=== PATIENT | female | born 1980 | race African-American/Black ===

== ENCOUNTER 2017-06-20 10:21 | Emergency (ER) | payer OTHER ==
[~2017-06-20] VITALS: Ht 170.2 cm; Wt 97.5 kg
[2017-06-20 10:37] VITALS: BP 155/70
[2017-06-20] MEDS ORDERED: OXYC-328 PO (10:46)
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
== END 2017-06-20 10:45 | disposition home or self-care (01) ==
LOC: ER 10:21
DX: R52 Pain, unspecified (principal); F43.10 Post-traumatic stress disorder, unspecified; I49.3 Ventricular premature depolarization
CPT/HCPCS: 99283

== ENCOUNTER 2017-09-04 08:50 | Emergency (ER) | payer OTHER ==
[~2017-09-04] VITALS: Ht 167.6 cm; Wt 97.5 kg
[~2017-09-04 08:50] MED LIST: APIX5TAB PO; ESCITALOPRAM OX10 MG PO; FERR-36 PO; HYDR-2766 PO; HYDR25TA PO; KETO15CR2 TP; NICO1PAT25 TD; OXYC-328 PO; PANT40TA3 PO; POTA20TA82 PO; TRIA15CR TP
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
[2017-09-04] MEDS ORDERED: oxyCODONE/APAP 5/325 1 TAB TABLET PO ONE (09:30)
[2017-09-04] MEDS ORDERED: LIDOCAINE 1%/EPI 1:100,000 20 ML VIAL. INJ ONE (09:30)
[2017-09-04] MEDS ORDERED: ONDANSETRON ODT 4 MG TAB.RAPDIS. PO ONE (09:30)
[2017-09-04] MEDS ORDERED: HYDR-971 PO (09:52)
[2017-09-04 09:56] VITALS: BP 153/73
== END 2017-09-04 09:57 | disposition home or self-care (01) ==
LOC: ER 08:50
DX: L02.213 Cutaneous abscess of chest wall (principal); F43.10 Post-traumatic stress disorder, unspecified
CPT/HCPCS: 10060; 87071; 87075; 87205; 99284; J3490; Q0162

== ENCOUNTER 2017-10-19 07:18 | Emergency (ER) | payer OTHER ==
[2017-10-19] MEDS: LIDOCAINE WITH 8.4% SOD BICARB 3 ML DISP.SYRIN. IJ (07:45)
[2017-10-19] MEDS: oxyCODONE/APAP 5/325 1 TAB TABLET PO (07:51)
== END 2017-10-19 08:31 | disposition home or self-care (01) ==
LOC: ER 07:18
DX: L02.211 Cutaneous abscess of abdominal wall (principal); F43.10 Post-traumatic stress disorder, unspecified; Z98.84 Bariatric surgery status
CPT/HCPCS: 10060; 99283-25

== ENCOUNTER 2018-05-20 13:55 | Emergency (ER) | payer OTHER ==
[2018-05-20] MEDS: HYDROcodone/APAP 5/325MG 1 TAB TABLET PO (15:33)
[2018-05-20] MEDS: LIDOCAINE WITH 8.4% SOD BICARB 3 ML DISP.SYRIN. INJ (15:34)
== END 2018-05-20 16:02 | disposition home or self-care (01) ==
LOC: ER 16:02
DX: N76.4 Abscess of vulva (principal)
CPT/HCPCS: 56405; 99284

== ENCOUNTER 2018-08-19 19:51 | Emergency (ER) | payer OTHER ==
[~2018-08-19] VITALS: Ht 167.6 cm; Wt 97.5 kg
[~2018-08-19 19:51] MED LIST changes: +DOXY100C14 PO; +HYDR-971 PO
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
[2018-08-19] MEDS ORDERED: diazePAM 5 MG TABLET PO ONE (20:15)
[2018-08-19] MEDS ORDERED: hydroCHLOROthiazide 12.5 MG CAPSULE PO ONE (20:15)
[2018-08-19] MEDS ORDERED: IV NORMAL SALINE 1000ML BAG 1,000 ML IV ONE (20:30)
[2018-08-19] MEDS ORDERED: METOPROLOL TARTRATE 5 MG/5 ML VIAL. IVP ONE (20:30)
[2018-08-19 21:37] LABS: BASO % 0 % (0-3); EOS % 0 % (0-3); HEMATOCRIT 35.8 % (36.0-47.0); HEMOGLOBIN 11.5 g/dL (12.0-15.5); LYMPH # 1.7 x10^3/uL (1.0-4.8); LYMPH % 14 % (24-48); MEAN CORPUSCULAR HEMOGLOBIN 24 pg (25-35); MEAN CORPUSCULAR HGB CONC 32 g/dL (31-37); MEAN CORPUSCULAR VOLUME 75 fL (79-100); MONO # 0.6 x10^3/uL (0.0-1.1); MONO % 5 % (0-9); NEUT # 9.7 x10^3uL (1.8-7.7); NEUT % 80 % (31-73); PLATELET COUNT 299 x10^3/uL (140-400); RED BLOOD COUNT 4.78 x10^6/uL (3.50-5.40); RED CELL DISTRIBUTION WIDTH 19.7 % (11.5-14.5); WHITE BLOOD COUNT 12.1 x10^3/uL (4.0-11.0)
[2018-08-19 21:42] LABS: BARBITURATES NEG (NEG); BENZODIAZEPINES NEG (NEG); CANNABINOIDS NEG (NEG); COCAINE NEG (NEG); METHADONE NEG (NEG); OPIATES NEG (NEG); PHENCYCLIDINE NEG (NEG)
[2018-08-19 21:44] LABS: AMPHETAMINE/METHAMPHETAMINE POS (NEG)
[2018-08-19 22:24] VITALS: BP 150/86
[2018-08-19 22:26] LABS: CALCIUM 8.9 mg/dL (8.5-10.1); CREATININE 0.9 mg/dL (0.6-1.0); GFR 84.3; MAGNESIUM 2.2 mg/dL (1.8-2.4); POTASSIUM 3.1 mmol/L (3.5-5.1)
[2018-08-19] MEDS ORDERED: POTA20TA82 PO (22:59)
[2018-08-19] MEDS ORDERED: HYDR12.58 PO (22:59)
[2018-08-19] MEDS ORDERED: POTASSIUM CHLORIDE 20 MEQ TABLET.ER. PO ONE (23:00)
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
--- NOTE | 2018-08-20 09:22 | EKG ---
[facility] [address] [place] [address] Test Date: 2018-08-19 Test Time: 20:55:12 Pat Name: ISABEL DAWN Department: Room: Gender: F Gift Officer: : 1980 Requested By: KASHMIR BATES Order Number: [id number] Reading MD: Vladimir Adame MD Measurements Intervals [place] Rate: 74 P: 48 SC: 176 QRS: -5 QRSD: 92 T: 24 QT: 404 QTc: 449 Interpretive Statements SINUS RHYTHM Electronically Signed On 08-22-2018 11:31:44 CDT by Vladimir Adame MD
== END 2018-08-19 23:33 | disposition home or self-care (01) ==
LOC: ER 19:51
DX: F41.9 Anxiety disorder, unspecified (principal); I10 Essential (primary) hypertension; E87.6 Hypokalemia; F43.10 Post-traumatic stress disorder, unspecified
CPT/HCPCS: 36415; 71045; 80048; 80307; 83735; 83880; 84484; 85025; 93005; 99285; G0480; J7030; G0479

== ENCOUNTER 2020-09-28 15:14 | Emergency (ER) | payer MEDICAID, OTHER ==
[~2020-09-28] VITALS: Ht 294.6 cm; Wt 112.0 kg
[~2020-09-28 15:14] MED LIST changes: -HYDR-2766 PO; +HYDR-2769 PO; +HYDR-3164 PO; -HYDR-971 PO; +HYDR12.58 PO; -OXYC-328 PO; +OXYC1TAB22 PO; -PANT40TA3 PO; +PANT40TA77 PO; +POTA20TA4 PO; -POTA20TA82 PO
[2020-09-28 16:00] VITALS: BP 132/95
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
== END 2020-09-28 16:44 | disposition home or self-care (01) ==
LOC: ER 15:14
DX: S40.852A Superficial foreign body of left upper arm, initial encounter (principal); F41.9 Anxiety disorder, unspecified; I10 Essential (primary) hypertension; F17.200 Nicotine dependence, unspecified, uncomplicated; Z98.890 Other specified postprocedural states; W45.8XXA Other foreign body or object entering through skin, initial encounter; Y93.89 Activity, other specified; Y92.89 Other specified places as the place of occurrence of the external cause; Y99.8 Other external cause status
CPT/HCPCS: 10120; 99285

== ENCOUNTER 2021-12-14 06:49 | Inpatient (IN) | payer MEDICAID ==
[2021-12-14] VITALS (8 sets, daily range): BP systolic 129–159; BP diastolic 76–123
[~2021-12-14] VITALS: Ht 167.6 cm; Wt 122.0 kg
[~2021-12-14 06:49] MED LIST changes: +DOXY-181 PO; -DOXY100C14 PO
[2021-12-14] MEDS ORDERED: IV NORMAL SALINE 1000ML BAG 1,000 ML IV ONE (07:00)
--- NOTE | 2021-12-14 07:14 | EKG ---
[facility] [address] [place] [address] Test Date: 2021-12-14 Test Time: 07:06:50 Pat Name: ISABEL DAWN Department: Room: Gender: F Pile Trimmer: : 1980 Requested By: RUBIA MCKENNA Order Number: [id number] Reading MD: Garrison Blair Measurements Intervals [place] Rate: 75 P: 169 [place]: 200 QRS: 12 QRSD: 92 T: 16 QT: 386 QTc: 434 Interpretive Statements SINUS RHYTHM LEFT ATRIAL ABNORMALITY Electronically Signed On 12-14-2021 13:45:56 MEDICAL RECORD [employer] TEACHER by Garrison Blair
[2021-12-14] MEDS ORDERED: CONTRAST GIVEN. MC PRN (07:15)
[2021-12-14] MEDS ORDERED: IOHEXOL 300 MG/ML 100ML VIAL. IV ONE (07:15)
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
[2021-12-14 07:35] LABS: BASO % 0 % (0-3); EOS # 0.1 x10^3/uL (0.0-0.7); EOS % 1 % (0-3); HEMATOCRIT 41.8 % (36.0-47.0); HEMOGLOBIN 12.9 g/dL (12.0-15.5); LYMPH # 2.1 x10^3/uL (1.0-4.8); LYMPH % 26 % (24-48); MEAN CORPUSCULAR HEMOGLOBIN 26 pg (25-35); MEAN CORPUSCULAR HGB CONC 31 g/dL (31-37); MEAN CORPUSCULAR VOLUME 84 fL (79-100); MONO # 0.4 x10^3/uL (0.0-1.1); MONO % 5 % (0-9); NEUT # 5.5 x10^3/uL (1.8-7.7); NEUT % 68 % (31-73); PLATELET COUNT 313 x10^3/uL (140-400); RED BLOOD COUNT 4.97 x10^6/uL (3.50-5.40); RED CELL DISTRIBUTION WIDTH 17.6 % (11.5-14.5); WHITE BLOOD COUNT 8.1 x10^3/uL (4.0-11.0)
[2021-12-14 07:45] LABS: CALCIUM 8.2 mg/dL (8.5-10.1); CREATININE 0.7 mg/dL (0.6-1.0); POTASSIUM 3.9 mmol/L (3.5-5.1)
[2021-12-14 07:55] LABS: PROTHROMBIN TIME PATIENT 11.6 SEC (11.7-14.0)
--- NOTE | 2021-12-14 07:55 | RAD ---
CT head without contrast: Reason for examination: Left-sided weakness with left facial droop. Helical images were obtained through the brain with no contrast administered. Reconstruction was perf ormed in sagittal and coronal planes. Exposure: One or more of the following individualized dose reduction techniques were utilized for thi s examination: 1. Automated exposure control 2. Adjustment of the mA and/or kV according to patient size 3. Use of iterative reconstruction technique. Ventricular systems are symmetric and not dilated. No midline shift is seen. There is no evidence of intracranial hemorrhage, infarct, mass or edema. No abnormalities of seen at the orbits. The paranasa l sinuses show small polypoid lesions bilaterally in the maxillary antra. Mastoid air cells are clear . No acute skull abnormality is seen. IMPRESSION: No acute intracranial abnormality evident. Small polypoid lesions in the maxillary antra bilaterally. FOR INTERNAL CODING PURPOSES Critical result: Findings discussed with RUBIA MCKENNA MD at 12/14/2021 7:51 AM. RESULT CODE: (C) Electronically signed by: Raquel Patterson MD (12/14/2021 7:53 AM) [id number]
[2021-12-14] MEDS ORDERED: ASPIRIN 325 MG TABLET PO ONE (08:45)
--- NOTE | 2021-12-14 08:55 | RAD ---
CT angiogram of the head and neck with contrast: Reason for examination: Left-sided weakness and left facial droop. Now improving. Helical images were obtained through the head and neck with intravenous administration of 75 cc Isovu e-370 using and angiographic protocol. 3-D MIPS reconstruction was performed in sagittal and coronal planes and volume rendered images were obtained. Exposure: One or more of the following individualized dose reduction techniques were utilized for thi s examination: 1. Automated exposure control 2. Adjustment of the mA and/or kV according to patient size 3. Use of iterative reconstruction technique. The intracranial carotid arteries are patent. There is normal bifurcation into the anterior middle ce rebral arteries no stenoses or occlusions are evident. Vertebral arteries bilaterally are patent with normal confluence into the basilar artery which is patent. There is normal blood flow into the super ior cerebellar and posterior cerebral arteries bilaterally no aneurysms or arteriovenous malformation s are identified. Dural sinuses and cerebral veins are patent. Diffuse renal veins are patent. The aortic arch shows normal origin of the right brachiocephalic gayle ry, left carotid artery and left subclavian artery with no stenoses or occlusions evident. Subclavian arteries bilaterally are patent. The vertebral arteries bilaterally arise from the respective subcla vian arteries and are patent to the basilar artery. The common carotid arteries bilaterally show no s tenosis or occlusions. The internal and external carotid artery show no stenosis or occlusions. No abnormalities of seen at the parotid or submandibular glands. No abnormality seen at the thyroid g land. The trachea and visualized portion of the esophagus show no abnormalities. Vocal cords are symm etric. Vallecula and piriform sinuses show no gross abnormalities. Muscular bundles are symmetric. A few nonspecific lymph nodes are seen in the neck. IMPRESSION: No acute vascular abnormalities evident in the head or neck. Electronically signed by: Raquel Patterson MD (12/14/2021 8:53 AM) [id number]
[2021-12-14 09:02] LABS: BILIRUBIN,URINE NEGATIVE (NEG); CLARITY,URINE CLOUDY; COLOR,URINE YELLOW; NITRITE,URINE NEGATIVE (NEG); PROTEIN,URINE NEGATIVE (NEG-TRACE)
[2021-12-14 09:06] LABS: U PREG PATIENT NEGATIVE (NEG)
[2021-12-14 09:16] LABS: BACTERIA,URINE FEW /HPF (0-FEW); RBC,URINE 0 /HPF (0-2)
[2021-12-14] MEDS ORDERED: hydroCHLOROthiazide 25 MG TABLET PO ONE (09:30)
[2021-12-14] MEDS ORDERED: hydrALAZINE 20 MG/ML VIAL. IVP PRN (10:00)
[2021-12-14] MEDS ORDERED: ASPIRIN RECTAL 300 MG SUPP. PR PRN (10:00)
[2021-12-14] MEDS ORDERED: ONDANSETRON PF 4 MG/2 ML VIAL. IVP PRN (10:00)
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
[2021-12-14 10:30] LABS: BARBITURATES NEG (NEG); BENZODIAZEPINES NEG (NEG); CANNABINOIDS NEG (NEG); COCAINE NEG (NEG); METHADONE NEG (NEG); OPIATES NEG (NEG); PHENCYCLIDINE NEG (NEG)
[2021-12-14 10:31] LABS: AMPHETAMINE/METHAMPHETAMINE NEG (NEG)
[2021-12-14 10:35] LABS: CHOLESTEROL/HDL RATIO 2.6
--- NOTE | 2021-12-14 11:00 | NUR ---
Patient received from ED via wheelchair; s/p possible TIA and left side weakness. NIH score of 2 on floor. Patient is hypertensive and reported a headache. MD notified. See chart for more. Will cont. to monitor
[2021-12-14] MEDS: FAMOTIDINE 20 MG TABLET. PO SCH ×2 (11:36→21:33)
[2021-12-14] MEDS: ACETAMINOPHEN 325 MG TABLET. PO PRN ×2 (11:36→17:08)
[2021-12-14] MEDS ORDERED: SODIUM CHLORIDE 0.65% NASAL SPRAY 45ML BOTTLE. NS PRN (16:00)
[2021-12-14] MEDS: hydroCHLOROthiazide 12.5 MG CAPSULE PO SCH (16:00)
[2021-12-14] MEDS ORDERED: ALBUTEROL SULFATE 2.5 MG/3 ML NEBU. NEB PRN (16:00)
[2021-12-14] MEDS: CETIRIZINE HCL 10 MG TABLET. PO SCH (17:06)
[2021-12-14] MEDS: CITALOPRAM 20 MG TABLET. PO SCH (17:06)
[2021-12-14] MEDS: NICOTINE 7MG PATCH. TD SCH (17:07)
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
[2021-12-14] MEDS: ENOXAPARIN 40 MG/0.4 ML SYRINGE. SQ SCH ×2 (21:00→21:34)
[2021-12-14] MEDS: PSYLLIUM HUSK (SUGAR FREE) 1 PKT PACKET PO SCH (21:33)
[2021-12-14] MEDS: MONTELUKAST SODIUM 10 MG TABLET. PO SCH (21:33)
[2021-12-14] MEDS: ATORVASTATIN CALCIUM 40 MG TABLET. PO SCH (21:34)
[2021-12-14] MEDS: FLUTICASONE 50MCG/NASAL SPRAY 16GM BOTTLE. NS SCH (21:35)
[2021-12-15 02:20] VITALS: BP 133/69
[2021-12-15 03:11] LABS: HEMOGLOBIN A1C 5.5 % (4.8-5.6)
[2021-12-15] MEDS: ACETAMINOPHEN 325 MG TABLET. PO PRN ×2 (06:34→18:02)
[2021-12-15 07:00] VITALS: BP 138/83
[2021-12-15] MEDS: hydroCHLOROthiazide 12.5 MG CAPSULE PO SCH (08:27)
[2021-12-15] MEDS: ASPIRIN ENTERIC COATED 325 MG TABLET.DR. PO SCH (08:27)
[2021-12-15] MEDS: ENOXAPARIN 40 MG/0.4 ML SYRINGE. SQ SCH ×2 (08:27→20:48)
[2021-12-15] MEDS: FAMOTIDINE 20 MG TABLET. PO SCH ×2 (08:28→20:48)
[2021-12-15] MEDS: NICOTINE 7MG PATCH. TD SCH (08:28)
[2021-12-15] MEDS: CETIRIZINE HCL 10 MG TABLET. PO SCH (08:28)
[2021-12-15] MEDS: CITALOPRAM 20 MG TABLET. PO SCH (08:28)
[2021-12-15 10:47] VITALS: BP 140/64
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
--- NOTE | 2021-12-15 13:50 | NUR ---
SS following for discharge planning. SS reviewed pt chart and discussed with pt RN. Pt is from home and is currently on room air. Neurology following. Brain MRI ordered. PO diet. PT/OT recommended home independent. SS will continue to follow for discharge planning.
[2021-12-15 15:00] VITALS: BP 116/51
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
[2021-12-15 19:00] VITALS: BP 102/47
[2021-12-15] MEDS: MONTELUKAST SODIUM 10 MG TABLET. PO SCH (20:48)
[2021-12-15] MEDS: ATORVASTATIN CALCIUM 40 MG TABLET. PO SCH (20:48)
[2021-12-15] MEDS: PSYLLIUM HUSK (SUGAR FREE) 1 PKT PACKET PO SCH (20:48)
[2021-12-15] MEDS: FLUTICASONE 50MCG/NASAL SPRAY 16GM BOTTLE. NS SCH (20:48)
[2021-12-15 23:00] VITALS: BP 119/80
[2021-12-16 03:00] VITALS: BP 136/70
[2021-12-16 07:00] VITALS: BP 143/77
--- NOTE | 2021-12-16 07:38 | CARD ---
MR#: [id number] Date of Study: 12/15/2021 Ordering Physician: EDGAR ELY, Referring Physician: EDGAR ELY Tech: Stalin Loredo [facility] APPROVED REPORT EXAM: Two-dimensional and M-mode echocardiogram with Doppler and color Doppler. Other Information Quality : FairHR: 81bpm Rhythm : NSR INDICATION CVA/TIA Echo Enhancing Agent Agent/Amount Used: Agitated Saline 8mL RISK FACTORS Hyperlipidemia 2D DIMENSIONS Left Atrium(2D)3.6 (1.6-4.0cm)IVSd1.0 (0.7-1.1cm) Aortic Root(2D)2.7 (2.0-3.7cm)LVDd5.3 (3.9-5.9cm) LVOT Diameter2.0 (1.8-2.4cm)PWd1.1 (0.7-1.1cm) LVDs2.8 (2.5-4.0cm)FS (%) 45.9 % SV102.3 mlLVEF(%)76.9 (>50%) Aortic Valve AoV Peak Ibrahima.219.7cm/sAoV VTI26.8cm AO Peak GR.19.3mmHgLVOT VTI 19.54cm AO Mean GR.9mmHg Mitral Valve MV E Wcmxiarg94.6cm/sMV E Peak Gr.4mmHg MV DECEL [id number] A Sccaggoi83.3cm/s MV E Mean Gr.3mmHgE/A Ratio1.2 TDI Lateral E' P. V15.57cm/sMedial E' P. V7.79cm/s E/Lateral E'5.8E/Medial E'11.6 Tricuspid Valve TR P. [id number]/sTR Peak Gr.24mmHg Pulmonary Vein S1 Dwouusjy68.9cm/sS2 Phxmescj81.84cm/s D2 Zpoaqiin32.8cm/s LEFT VENTRICLE The left ventricle is normal size. There is normal left ventricular wall thickness. The left ventricu lar systolic function is normal. Ejection fraction is estimated at 60%. There is normal LV segmental wall motion. The left ventricular diastolic function and filling is normal for age. No left ventricle thrombus noted on this study. There is no ventricular septal defect visualized. There is no left cindy tricular aneurysm. There is no mass noted in the left ventricle. RIGHT VENTRICLE The right ventricle is normal size. There is normal right ventricular wall thickness. The right ventr icular systolic function is normal. ATRIA The left atrium size is normal. The right atrium size is normal. The interatrial septum is intact wit h no evidence for an atrial septal defect or patent foramen ovale as noted on 2-D, Doppler imaging an d saline contrast imaging. AORTIC VALVE The aortic valve is normal in structure and function. Doppler and Color Flow revealed no significant aortic regurgitation. There is no significant aortic valvular stenosis. There is no aortic valvular v egetation. MITRAL VALVE The mitral valve is normal in structure and function. There is no evidence of mitral valve prolapse. There is no mitral valve stenosis. Doppler and Color Flow revealed no mitral valve regurgitation note d. TRICUSPID VALVE The tricuspid valve is normal in structure and function. Doppler and Color Flow revealed no tricuspid valve regurgitation noted. There is no tricuspid valve prolapse or vegetation. There is no tricuspid valve stenosis. PULMONIC VALVE The pulmonary valve is normal in structure and function. Doppler and Color Flow revealed no pulmonic valvular regurgitation. There is no pulmonic valvular stenosis. GREAT VESSELS The aortic root is normal in size. The ascending aorta is normal in size. The pulmonary artery is nor mal. The IVC is normal in size and collapses >50% with inspiration. PERICARDIAL EFFUSION There is no pleural effusion. There is no evidence of significant pericardial effusion. Critical Notification Critical Value: No <Conclusion> The left ventricular systolic function is normal. Ejection fraction is estimated at 60%. There is normal LV segmental wall motion. There is no evidence of significant pericardial effusion. Bubble study technically difficult and appears to be negative. Recommend ZEINAB if clinical suspicion for paradoxical embolization is high. Signed by : Garrison Blair, Electronically Approved : 12/16/2021 07:38:36
[2021-12-16] MEDS: NICOTINE 7MG PATCH. TD SCH (08:20)
[2021-12-16] MEDS: ENOXAPARIN 40 MG/0.4 ML SYRINGE. SQ SCH (08:20)
[2021-12-16] MEDS: CETIRIZINE HCL 10 MG TABLET. PO SCH (08:20)
[2021-12-16] MEDS: CITALOPRAM 20 MG TABLET. PO SCH (08:20)
[2021-12-16] MEDS: FAMOTIDINE 20 MG TABLET. PO SCH (08:20)
[2021-12-16] MEDS: hydroCHLOROthiazide 12.5 MG CAPSULE PO SCH (08:20)
[2021-12-16] MEDS: ASPIRIN ENTERIC COATED 325 MG TABLET.DR. PO SCH (08:23)
[2021-12-16 11:00] VITALS: BP 135/69
[2021-12-16] MEDS ORDERED: AMLO2.5T5 PO (11:57)
--- NOTE | 2021-12-16 11:59 | DISCH ---
DISCHARGE INSTRUCTIONS Condition on Discharge Condition on Discharge: Stable Activity After Discharge Activity Instructions for Disc: Activity as tolerated Weight Bearing Status after Di: As tolerated Diet after Discharge Diet after Discharge: Regular Follow-Up Follow up with: PCP within 2 weeks of discharge Follow Up With: Neurology as needed JOHNATHAN AUSTIN MD Dec 16, 2021 11:59
--- NOTE | 2021-12-16 12:19 | NUR ---
SS following up with discharge planning. SS reviewed pt chart and discussed with pt RN. Pt is currently on room air. No PT/OT/ST needs. Discharge order on the chart for home with self care.
--- NOTE | 2021-12-16 12:47 | NUR ---
DISCHARGED PATIENT TO HOME. DISCHARGE INSTRUCTIONS GIVEN. PIV AND HEART MONITOR REMOVED. ESCORTED PATIENT OFF UNIT INTO A PRIVATE VEHICLE.
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
[2021-12-21] MEDS ORDERED: ASPI-886 PO (10:38)
[2021-12-21] MEDS ORDERED: ATOR20TA58 PO (10:38)
== END 2021-12-16 12:40 | disposition home or self-care (01) | DRG 69 ==
LOC: ER 06:49 → 6 SOUTH 09:03
PROVIDERS: ADMIT Internal Medicine; ATTEND Internal Medicine
DX: G45.9 Transient cerebral ischemic attack, unspecified (principal); Z68.41 Body mass index [BMI] 40.0-44.9, adult; I16.0 Hypertensive urgency; F17.210 Nicotine dependence, cigarettes, uncomplicated; F41.9 Anxiety disorder, unspecified; E66.01 Morbid (severe) obesity due to excess calories; I10 Essential (primary) hypertension; J45.909 Unspecified asthma, uncomplicated; Z82.49 Family history of ischemic heart disease and other diseases of the circulatory system; Z86.711 Personal history of pulmonary embolism; Z86.718 Personal history of other venous thrombosis and embolism; Z98.84 Bariatric surgery status; Z71.6 Tobacco abuse counseling
CPT/HCPCS: 36415; 70450; 70496; 70498; 80048; 80061; 80307; 81001; 81025; 82962; 83036; 84484; 85025; 85610; 85730; 93005; 93306; 96360; J1650; J7030; Q9967; 92610-GN; 99285-25; C8929; G0378